=== PATIENT | female | born 1980 | race Caucasian/White ===

== ENCOUNTER → 2016-09-30 | Outpatient (CLI) | payer OTHER ==
[~2016-09-30] MED LIST: ACET-1311 PO; ALBUAER INH; BSP/10 PO; ESCI1TAB10 PO
--- NOTE | 2016-09-30 12:44 | DIAGNOSTIC IMAGING REPORT ---
RIGHT FOOT MIN 3 VIEWS ROUTINE CLINICAL HISTORY: Right foot pain. Plantar fasciitis. At least tendinitis. COMPARISON: None. DISCUSSION: No fractures are visualized. There are no erosive or destructive changes. There is Achilles insertional spur and plantar calcaneal spur. IMPRESSION: 1. No acute fractures 2. Calcaneal spurring 3. No evidence of erosive disease Electronically signed by: Ronald Avery M.D. 09/30/2016 12:42 PM
--- NOTE | 2016-09-30 12:46 | DIAGNOSTIC IMAGING REPORT ---
LEFT FOOT MIN 3 VIEWS ROUTINE CLINICAL HISTORY: Left foot pain. Plantar fasciitis. Achilles tendinitis. COMPARISON: 11/05/2015 DISCUSSION: No fractures or dislocations are visualized. There is a tiny plantar calcaneal spur and tiny Achilles insertional spur. There is no erosive disease. IMPRESSION: 1. No acute fractures 2. Tiny calcaneal spurs 3. No evidence of erosive disease Electronically signed by: Ronald Avery M.D. 09/30/2016 12:44 PM
== END | disposition home or self-care (01) ==
LOC: C.RAD 11:22
PROVIDERS: ATTEND Podiatrist Foot & Ankle Surgery
DX: M72.2 Plantar fascial fibromatosis (principal)

== ENCOUNTER → 2016-09-30 | Outpatient (CLI) | payer OTHER ==
[2016-09-30 13:16] LABS: BASO % 0.2 %; BASO ABS # 0.03 K/uL (0-0.2); COMPLETE YES; EOS % 3.1 %; HEMATOCRIT 42.1 % (37-47); IG% 0.6 %; LYMPH % 17.8 %; LYMPH ABS # 2.41 K/uL (1.2-3.4); MEAN CELL VOLUME 91.9 fL (80-100); MEAN CORPUSCULAR HEMOGLOBIN 32.5 pg (25-34); MEAN CORPUSCULAR HGB CONC 35.4 g/dl (32-36); MEAN PLATELET VOLUME 10.4 fL (7.4-10.4); MONO % 6.7 %; NEUT % 71.6 %; PLATELET COUNT 321 K/uL (130-400); RED BLOOD COUNT 4.58 M/uL (4.2-5.4); WHITE BLOOD COUNT 13.54 K/uL (4.8-10.8)
[2016-09-30 14:02] LABS: ALT/SGPT 42 U/L (12-78); BLOOD UREA NITROGEN 10 mg/dl (7-18); BUN/CREATININE RATIO 14.5 (10-20); CALCIUM 9.7 mg/dl (8.5-10.1); CARBON DIOXIDE 26 mmol/L (21-32); CHLORIDE 105 mmol/L (98-107); CREATININE 0.66 mg/dl (0.60-1.20); GLUCOSE 114 mg/dl (70-99); POTASSIUM 3.4 mmol/L (3.5-5.1); SODIUM 142 mmol/L (136-145)
[2016-09-30 14:11] LABS: ALKALINE PHOSPHATASE 72 U/L (45-117); AST/SGOT 20 U/L (15-37); FERRITIN 84.9 ng/ml (8.0-388.0); TOTAL IRON BINDING CAPACITY 288 mcg/dl (250-450)
[2016-09-30 17:12] LABS: TESTOSTERONE,TOTAL 35.08 ng/dl (14-76)
[2016-09-30 17:13] LABS: PROGESTERONE 0.92 ng/mL; PROLACTIN 16.65 ng/mL
[2016-10-03 08:44] LABS: 18KDIGG BAND NONREACTIVE (NONREACTIVE); 23KDIGG BAND NONREACTIVE (NONREACTIVE); 23KDIGM BAND NONREACTIVE (NONREACTIVE); 28KDIGG BAND NONREACTIVE (NONREACTIVE); 30KDIGG BAND NONREACTIVE (NONREACTIVE); 39KDIGG BAND NONREACTIVE (NONREACTIVE); 39KDIGM BAND NONREACTIVE (NONREACTIVE); 41KDIGG BAND REACTIVE (NONREACTIVE); 41KDIGM BAND NONREACTIVE (NONREACTIVE); 45KDIGG BAND NONREACTIVE (NONREACTIVE); 58KDIGG BAND NONREACTIVE (NONREACTIVE); 66KDIGG BAND NONREACTIVE (NONREACTIVE); 93KDIGG BAND NONREACTIVE (NONREACTIVE)
[2016-10-05 10:24] LABS: GLIADIN DEAMIDATED IgA AB 5 UNITS (<20); GLIADIN DEAMIDATED IgG AB 2 UNITS (<20); PREGNENELONE **TC 31493X <5 ng/dL; SEX HORMONE BINDING GLOB 19 NMOL/L (17-124)
== END | disposition home or self-care (01) ==
LOC: C.LAB 11:28
PROVIDERS: ATTEND Family Medicine
DX: R53.83 Other fatigue (principal); E28.9 Ovarian dysfunction, unspecified

== ENCOUNTER → 2016-12-22 | Outpatient (CLI) | payer OTHER ==
[2016-12-22 12:06] LABS: HEMATOCRIT 41.1 % (37-47); MEAN CELL VOLUME 91.7 fL (80-100); MEAN CORPUSCULAR HEMOGLOBIN 32.1 pg (25-34); MEAN PLATELET VOLUME 9.7 fL (7.4-10.4); PLATELET COUNT 336 K/uL (130-400); RED BLOOD COUNT 4.48 M/uL (4.2-5.4); WHITE BLOOD COUNT 11.45 K/uL (4.8-10.8)
[2016-12-22 12:30] LABS: ALKALINE PHOSPHATASE 84 U/L (45-117); ALT/SGPT 37 U/L (12-78); AST/SGOT 24 U/L (15-37); BLOOD UREA NITROGEN 9 mg/dl (7-18); BUN/CREATININE RATIO 11.7 (10-20); CALCIUM 9.3 mg/dl (8.5-10.1); CARBON DIOXIDE 31 mmol/L (21-32); CHLORIDE 103 mmol/L (98-107); CREATININE 0.76 mg/dl (0.60-1.20); GLUCOSE 92 mg/dl (70-99); POTASSIUM 3.6 mmol/L (3.5-5.1); SODIUM 140 mmol/L (136-145)
== END | disposition home or self-care (01) ==
LOC: C.LAB 11:25
PROVIDERS: ATTEND Family Medicine
DX: R53.83 Other fatigue (principal)

== ENCOUNTER → 2017-03-24 | Outpatient (CLI) | payer OTHER ==
--- NOTE | 2017-03-24 16:09 | DIAGNOSTIC IMAGING REPORT ---
BILATERAL LOWER EXTREMITY VENOUS DOPPLER HISTORY: Pain. Edema. REQUESTED HOSPITAL* BILAT LEG PAIN/SWELLING COMPARISON STUDY: 12/15/2014 FINDINGS: There is normal compressibility, flow, and augmentation within the bilateral lower extremity deep venous systems. IMPRESSION: No DVT within the right or left lower extremity. Electronically signed by: Kayden Lester M.D. 03/24/2017 4:08 PM Dictated Date/Time: 03/24/2017 4:07 PM
== END | disposition home or self-care (01) ==
LOC: C.ULTR 15:31
PROVIDERS: ATTEND Family Medicine
DX: M79.89 Other specified soft tissue disorders (principal); M79.604 Pain in right leg; M79.605 Pain in left leg

== ENCOUNTER → 2017-03-26 | Outpatient (CLI) | payer OTHER ==
[2017-03-26 09:31] LABS: BASO % 0.2 %; BASO ABS # 0.02 K/uL (0-0.2); COMPLETE YES; EOS % 2.8 %; HEMATOCRIT 42.4 % (37-47); IG% 0.2 %; LYMPH % 29.6 %; LYMPH ABS # 2.44 K/uL (1.2-3.4); MEAN CELL VOLUME 94.6 fL (80-100); MEAN CORPUSCULAR HEMOGLOBIN 32.1 pg (25-34); MEAN PLATELET VOLUME 10.2 fL (7.4-10.4); MONO % 6.8 %; NEUT % 60.4 %; PLATELET COUNT 282 K/uL (130-400); RED BLOOD COUNT 4.48 M/uL (4.2-5.4); WHITE BLOOD COUNT 8.23 K/uL (4.8-10.8)
[2017-03-26 09:37] LABS: ALT/SGPT 58 U/L (12-78); BLOOD UREA NITROGEN 8 mg/dl (7-18); BUN/CREATININE RATIO 9.1 (10-20); CALCIUM 9.1 mg/dl (8.5-10.1); CARBON DIOXIDE 31 mmol/L (21-32); CHLORIDE 105 mmol/L (98-107); CHOLESTEROL 202 mg/dl (0-200); CREATININE 0.82 mg/dl (0.60-1.20); GLUCOSE 109 mg/dl (70-99); POTASSIUM 3.6 mmol/L (3.5-5.1); SODIUM 140 mmol/L (136-145); TRIGLYCERIDES 151 mg/dl (0-150); VERY LOW DENSITY LIPOPROT CALC 30 mg/dl
[2017-03-26 09:38] LABS: ESTIMATED AVERAGE GLUCOSE 114 mg/dl; HA1C FLAG Normal (Normal)
[2017-03-26 09:46] LABS: ALKALINE PHOSPHATASE 77 U/L (45-117); AST/SGOT 38 U/L (15-37); CHOLESTEROL/HDL RATIO 4.3; HDL CHOLESTEROL 47 mg/dl; LDL CHOLESTEROL CALCULATED 125 mg/dl; TOTAL IRON BINDING CAPACITY 309 mcg/dl (250-450)
== END | disposition home or self-care (01) ==
LOC: C.LAB 08:03
PROVIDERS: ATTEND Family Medicine
DX: R73.09 Other abnormal glucose (principal); E55.9 Vitamin D deficiency, unspecified; D51.9 Vitamin B12 deficiency anemia, unspecified; E78.9 Disorder of lipoprotein metabolism, unspecified; R53.83 Other fatigue

== ENCOUNTER → 2017-05-07 | Outpatient (CLI) | payer OTHER | END | disposition home or self-care (01) | LOC: C.LABSPEC 10:20 | PROVIDERS: ATTEND Family Medicine | DX: N39.0 Urinary tract infection, site not specified (principal) ==